=== PATIENT | male | born 1955 | race Two or more races ===

== ENCOUNTER 2022-10-15 12:57 | Emergency (ER) | payer OTHER ==
[2022-10-15 13:38] VITALS: BP 144/91; PULSE 81; RESP 20; TEMP 97.9; BMI 30.2
[2022-10-15] MEDS ORDERED: KETOROLAC TROMETHAMINE 15 MG/ML VIAL IM ONE (15:06)
[2022-10-15] MEDS ORDERED: ACETAMINOPHEN 500 MG TABLET (FP) PO ONE (15:06)
[2022-10-15] MEDS ORDERED: ACETAMINOPHEN 325 MG TABLET (FP) PO ONE (15:06)
[2022-10-15] MEDS ORDERED: ACETAMINOPHEN 325 MG TABLET (FP) ONE (15:13)
== END 2022-10-15 19:48 | disposition home or self-care (01) ==
LOC: JERFT 12:57 → JER 12:57 → JERFT 18:09
PROC: 3E023GC Introduction of Other Therapeutic Substance into Muscle, Percutaneous Approach (ICD-10-PCS; principal; 2022-10-15)
DX: M79.602 Pain in left arm (principal)
CPT/HCPCS: 73030-TC-LT-FY; 73060-TC-LT-FY; 73070-TC-LT-FY; 99284-25